=== PATIENT | female | born 1980 | race Caucasian/White ===

== ENCOUNTER 2017-07-16 13:15 | Emergency (ER) | payer MEDICAID ==
[2017-07-16 13:31] VITALS: BP 167/99
[2017-07-16] MEDS ORDERED: Acetaminophen/oxyCODONE 325-5 MG Tab PO ONE (13:39)
--- NOTE | 2017-07-16 13:43 | EDM.PDOC ---
ED HPI GENERAL MEDICAL PROBLEM - General Chief Complaint: ENT Problem Stated Complaint: TOOTH ACHE Time Seen by Provider: 07/16/17 13:44 Source of Information: Reports: Patient History Limitations: Reports: No Limitations - History of Present Illness INITIAL COMMENTS - FREE TEXT/NARRATIVE: Pt arrived with a painful rt lower molar and slight face swelling. She normally ses the [facility] clinic Duration: Hour(s):, Getting Worse - Related Data Allergies Allergy/AdvReac Type Severity Reaction Status Date / Time cephalexin monohydrate Allergy Intermediate Rash Verified 03/14/13 10:54 [From Keflex] Penicillins Allergy Intermediate Cannot Verified 03/14/13 10:54 Remember Sulfa (Sulfonamide Allergy Rash Verified 07/16/17 13:25 Antibiotics) Home Meds: Home Meds Venlafaxine HCl [Venlafaxine ER] 150 mg PO DAILY 01/29/13 [History] Dextroamphetamine/Amphetamine [Dextroamp-Amphet ER] 07/16/17 [History] traMADol HCl [Tramadol HCl] 07/16/17 [History] 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: Psychiatric History: Reports: Depression - Past Surgical History GI Surgical History: Reports: Appendectomy, Cholecystectomy Female Surgical History: Reports: Section Social & Family History - Tobacco Use Smoking Status *Q: Current Every Day Smoker Years of Tobacco use: 20 Packs/Tins Daily: 1 Used Tobacco, but Quit: No Second Hand Smoke Exposure: Yes - Alcohol Use Days Per Week of Alcohol Use: 0 - Recreational Drug Use Recreational Drug Use: No ED ROS ENT - Review of Systems Review Of Systems: See Below Constitutional: Reports: No Symptoms HEENT: Reports: Dental Pain, Ear Pain, Other (pain from the tooth extends to the ear. ) Respiratory: Reports: No Symptoms Cardiovascular: Reports: No Symptoms Endocrine: Reports: No Symptoms GI/Abdominal: Reports: No Symptoms : Reports: No Symptoms Musculoskeletal: Reports: No Symptoms Skin: Reports: No Symptoms ED EXAM, ENT - Physical Exam Exam: See Below Text/Narrative:: pt arrived with pain in the rt lower molar area. Exam Limited By: No Limitations General Appearance: Alert, Moderate Distress Ears: Normal TMs Nose: Normal Inspection Mouth/Throat: Dental Pain, Dental Tenderness, Other ( Pt does have some swelling along the jaw and around the rt back lower molar. ) Head: Atraumatic Course - Vital Signs Last Recorded V/S: Last Vital Signs Temp 36.1 C 07/16/17 13:29 Pulse 95 07/16/17 13:29 Resp 14 07/16/17 13:29 BP 167/99 H 07/16/17 13:29 Pulse Ox 94 L 07/16/17 13:29 - Orders/Labs/Meds Meds: Medications Discontinued Medications Generic Name Dose Route Start Last Admin Trade Name Freq PRN Reason Stop Dose Admin Oxycodone/Acetaminophen 1 tab 07/16/17 13:39 07/16/17 13:47 Percocet 325-5 Mg PO 07/16/17 13:40 1 tab ONETIME ONE Administration - Re-Assessments/Exams Free Text/Narrative Re-Assessment/Exam: 07/16/17 13:48 pt was given percocet 5/325 for pain 07/18/17 07:22 Departure - Departure Time of Disposition: 13:42 Disposition: Home, Self-Care 01 Clinical Impression: Infected tooth - Discharge Information Instructions: Dental Abscess, [id number] Referrals: PCP,None [Primary Care Provider] - Forms: ED Department Discharge Care Plan Goals: amoxicillin 500mg tid, norco 5/325 q6h prn for pain keep monday dental appt
== END 2017-07-16 13:50 | disposition home or self-care (01) ==
LOC: JP.ED 13:15
DX: K04.7 Periapical abscess without sinus (principal); F17.210 Nicotine dependence, cigarettes, uncomplicated; Z88.0 Allergy status to penicillin; Z88.2 Allergy status to sulfonamides; Z88.8 Allergy status to other drugs, medicaments and biological substances; Z79.899 Other long term (current) drug therapy
CPT/HCPCS: 99283; A9270

== ENCOUNTER 2017-07-17 13:53 | Emergency (ER) | payer MEDICAID ==
[2017-07-17 14:20] VITALS: BP 152/86
== END 2017-07-17 14:20 | disposition left against medical advice (07) ==
LOC: JP.ED 13:53
DX: Z53.21 Procedure and treatment not carried out due to patient leaving prior to being seen by health care provider (principal)

== ENCOUNTER 2017-09-03 14:07 | Emergency (ER) | payer MEDICAID ==
[2017-09-03 14:45] VITALS: BP 159/85
[2017-09-03] MEDS ORDERED: Ketorolac 30 MG/ML SDV IVPUSH ONE (14:59)
--- NOTE | 2017-09-03 15:02 | EDM.PDOC ---
ED HPI GENERAL MEDICAL PROBLEM - General Chief Complaint: ENT Problem Stated Complaint: RT TOP TOOTH PAIN Time Seen by Provider: 09/03/17 14:54 Source of Information: Reports: Patient History Limitations: Reports: No Limitations - History of Present Illness INITIAL COMMENTS - FREE TEXT/NARRATIVE: 36 yo female presents with dental pain. pain started 48 hours ago and has worsened with right sided eye and face swelling. afebrile. 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: Psychiatric History: Reports: Depression - Past Surgical History GI Surgical History: Reports: Appendectomy, Cholecystectomy Female Surgical History: Reports: Section Social & Family History - Tobacco Use Smoking Status *Q: Current Every Day Smoker Years of Tobacco use: 20 Packs/Tins Daily: 0.5 ED ROS ENT - Review of Systems Review Of Systems: See Below Constitutional: Denies: Fever, Chills HEENT: Reports: Dental Pain Respiratory: Denies: Shortness of Breath, Wheezing Cardiovascular: Denies: Chest Pain ED EXAM, ENT - Physical Exam Exam: See Below Exam Limited By: No Limitations General Appearance: Alert, WD/WN, No Apparent Distress Mouth/Throat: Dental Abcess, Dental Pain, Dental Tenderness (right upper rear molar) Head: Atraumatic, Normocephalic Neck: Supple, Non-Tender, Full Range of Motion, Lymphadenopathy (R) Respiratory/Chest: No Respiratory Distress Course - Vital Signs Last Recorded V/S: Last Vital Signs Temp 35.7 C 09/03/17 14:49 Pulse 59 L 09/03/17 14:49 Resp 16 09/03/17 14:49 BP 159/85 H 09/03/17 14:49 Pulse Ox 99 09/03/17 14:49 - Orders/Labs/Meds Meds: Medications Discontinued Medications Generic Name Dose Route Start Last Admin Trade Name Freq PRN Reason Stop Dose Admin Ketorolac Tromethamine 60 mg 09/03/17 14:59 09/03/17 15:05 Toradol IVPUSH 09/03/17 15:00 60 mg ONETIME ONE Administration Departure - Departure Time of Disposition: 15:02 Disposition: Home, Self-Care 01 Condition: Good Clinical Impression: Dental caries, Dental abscess - Discharge Information Referrals: Guille Barboza MD [Primary Care Provider] - Forms: ED Department Discharge Additional Instructions: present to dentist tomorrow clindamycin 300 mg three times daily for 7 days may find benefit form covering hole in tooth with dental wax found at [facility]
== END 2017-09-03 15:27 | disposition home or self-care (01) ==
LOC: JP.ED 14:07
DX: K04.7 Periapical abscess without sinus (principal); K02.9 Dental caries, unspecified; F17.210 Nicotine dependence, cigarettes, uncomplicated; Z88.1 Allergy status to other antibiotic agents; Z88.2 Allergy status to sulfonamides; Z88.0 Allergy status to penicillin; Z79.899 Other long term (current) drug therapy
CPT/HCPCS: 96374; 99283; J1885

== ENCOUNTER 2017-09-25 18:47 | Emergency (ER) | payer MEDICAID ==
[2017-09-25 20:51] VITALS: BP 161/90
[2017-09-25] MEDS ORDERED: Acetaminophen/oxyCODONE 325-5 MG Tab PO ONE (21:40)
[2017-09-25] MEDS ORDERED: Doxycycline 100 MG Cap PO ONE (21:40)
--- NOTE | 2017-09-25 21:43 | EDM.PDOC ---
ED HPI GENERAL MEDICAL PROBLEM - General Chief Complaint: Skin Complaint Stated Complaint: PAINFUL RED LUMP UNDER LEFT ARMPIT Time Seen by Provider: 09/25/17 21:33 left arm Pain Score (Numeric/FACES): 7 - Related Data Allergies Allergy/AdvReac Type Severity Reaction Status Date / Time cephalexin monohydrate Allergy Intermediate Rash Verified 09/25/17 20:45 [From Keflex] Penicillins Allergy Intermediate Cannot Verified 09/25/17 20:45 Remember Sulfa (Sulfonamide Allergy Rash Verified 09/25/17 20:45 Antibiotics) Home Meds: Home Meds Venlafaxine HCl [Venlafaxine ER] 150 mg PO DAILY 01/29/13 [History] Acetaminophen/oxyCODONE [Percocet 325-5 MG] 1 - 2 each PO Q4H PRN #6 tab [Rx] Dextroamphetamine/Amphetamine [Dextroamp-Amphet ER] 1 tab PO DAILY 09/25/17 [ History] Doxycycline Monohydrate 100 mg PO BID #14 capsule 09/25/17 [Rx] traMADol HCl [Tramadol HCl] 2 tab PO DAILY 09/25/17 [History] Past Medical History Gastrointestinal History: Reports: 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: Psychiatric History: Reports: Depression - Past Surgical History GI Surgical History: Reports: Appendectomy, Cholecystectomy Female Surgical History: Reports: Section Social & Family History - Tobacco Use Smoking Status *Q: Current Every Day Smoker Years of Tobacco use: 20 Packs/Tins Daily: 1 - Caffeine Use Caffeine Use: Reports: Coffee, Energy Drinks, Soda - Alcohol Use Days Per Week of Alcohol Use: 3 Number of Drinks Per Day: 3 Total Drinks Per Week: 9 - Recreational Drug Use Recreational Drug Use: No ED ROS GENERAL - Review of Systems Review Of Systems: See Below Constitutional: Reports: Malaise, Decreased Appetite. Denies: Fever, Chills HEENT: Reports: No Symptoms Respiratory: Reports: No Symptoms Cardiovascular: Reports: No Symptoms GI/Abdominal: Reports: No Symptoms Skin: Reports: Lesions (Tender red swollen area posterior aspect left upper arm) ED EXAM, SKIN/RASH Exam: See Below Exam Limited By: No Limitations General Appearance: Alert, Moderate Distress, Other (Elevated blood pressure but vital signs normal) Head: Atraumatic, Normocephalic Neck: Normal Inspection, Supple Respiratory/Chest: No Respiratory Distress, No Accessory Muscle Use Cardiovascular: Normal Peripheral Pulses, Regular Rate, Rhythm Extremities: Other (2 cm tender indurated swollen area with overlying eschar posterior aspect left upper arm) Neurological: Alert, Oriented Skin: Warm, Erythema (Tender swollen area as described above) Associated features: Tenderness (Restlessness) Lymphatic: No Adenopathy Course - Vital Signs Last Recorded V/S: Last Vital Signs Temp 36.2 C 09/25/17 20:49 Pulse 90 09/25/17 20:49 Resp 15 09/25/17 20:49 BP 161/90 H 09/25/17 20:49 Pulse Ox 99 09/25/17 20:49 - Orders/Labs/Meds Meds: Medications Discontinued Medications Generic Name Dose Route Start Last Admin Trade Name Freq PRN Reason Stop Dose Admin Doxycycline Hyclate 100 mg 09/25/17 21:40 09/25/17 21:48 Vibramycin PO 09/25/17 21:41 100 mg ONETIME ONE Administration Oxycodone/Acetaminophen 2 tab 09/25/17 21:40 09/25/17 21:48 Percocet 325-5 Mg PO 09/25/17 21:41 2 tab ONETIME ONE Administration - Re-Assessments/Exams Free Text/Narrative Re-Assessment/Exam: 09/25/17 21:42 36-year-old female with painful tender red swelling left upper arm Examination shows a small absce, considerable induration and some cellulitis around the area Unlikely to benefit from incision and drainage at this time Doxycycline 100 mg by mouth Perc 5/325, 2 tablets by mouthocetss 09/26/17 04:14 Departure - Departure Time of Disposition: 21:42 Disposition: Home, Self-Care 01 Condition: Good Clinical Impression: Abscess - Discharge Information Prescriptions: Acetaminophen/oxyCODONE [Percocet 325-5 MG] 1 - 2 each PO Q4H PRN #6 tab PRN Reason: Moderate to severe pain Doxycycline Monohydrate 100 mg PO BID #14 capsule Instructions: Skin Abscess Referrals: PCP,None [Primary Care Provider] - Forms: ED Department Discharge Additional Instructions: Soaking the area in hot water 2-3 times daily 15-20 minutes can help speed the healing See your physician if not improved in a week Get checked sooner if you have high fever or vomiting
== END 2017-09-25 21:51 | disposition home or self-care (01) ==
LOC: JP.ED 18:47
DX: L02.414 Cutaneous abscess of left upper limb (principal); F17.210 Nicotine dependence, cigarettes, uncomplicated; F32.9 Major depressive disorder, single episode, unspecified; K21.9 Gastro-esophageal reflux disease without esophagitis; Z79.899 Other long term (current) drug therapy; Z88.1 Allergy status to other antibiotic agents; Z88.0 Allergy status to penicillin; Z88.2 Allergy status to sulfonamides
CPT/HCPCS: 99283; A9270

== ENCOUNTER 2018-05-02 18:16 | Emergency (ER) | payer MEDICAID ==
--- NOTE | 2018-05-02 19:19 | EDM.PDOCBH ---
ED HPI GENERAL MEDICAL PROBLEM - General Chief Complaint: Behavioral/Psych Stated Complaint: SUICIDAL IDEATION Time Seen by Provider: 05/02/18 18:40 Source of Information: Reports: Patient, Family History Limitations: Reports: No Limitations - History of Present Illness INITIAL COMMENTS - FREE TEXT/NARRATIVE: 37-year-old female with severe depression, attempted suicide with overdose 1 week ago but survived. She has lost parental rights to her children, and recently got out of senior care 2 weeks ago. She has never been hospitalized for psychiatric reasons. She has been refusing help for years, and is finally broken down and asked her mom to help her and she is willing to get help. She is nonviolent. She admits to alcohol abuse and occasional methamphetamine use. I originally suggested detox, however she said she is currently sober and hasn' t used in days and has no need for detox, she needs to be somewhere where she is safe. Her mother is hopeful because this is the first time she is actually asked for help. Onset: Unknown/Unsure Associated Symptoms: Reports: No Other Symptoms - Related Data Allergies Allergy/AdvReac Type Severity Reaction Status Date / Time cephalexin monohydrate Allergy Intermediate Rash Verified 05/02/18 18:35 [From Keflex] Penicillins Allergy Intermediate Cannot Verified 05/02/18 18:35 Remember Sulfa (Sulfonamide Allergy Rash Verified 05/02/18 18:35 Antibiotics) Home Meds: Home Meds Venlafaxine HCl [Venlafaxine ER] 150 mg PO DAILY 01/29/13 [History] Acetaminophen/oxyCODONE [Percocet 325-5 MG] 1 - 2 each PO Q4H PRN #6 tab [Rx] Dextroamphetamine/Amphetamine [Dextroamp-Amphet ER] 1 tab PO DAILY 09/25/17 [ History] traMADol HCl [Tramadol HCl] 2 tab PO DAILY 09/25/17 [History] Past Medical History HEENT History: Reports: None 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: Musculoskeletal History: Reports: Fibromyalgia Neurological History: Reports: Headaches, Chronic Psychiatric History: Reports: Addiction, Anxiety, Depression Endocrine/Metabolic History: Reports: Obesity/BMI 30+ Dermatologic History: Reports: Other (See Below) Other Dermatologic History: sores on skin - Infectious Disease History Infectious Disease History: Reports: Chicken Pox - Past Surgical History HEENT Surgical History: Reports: Adenoidectomy, Tonsillectomy GI Surgical History: Reports: Appendectomy, Cholecystectomy Female Surgical History: Reports: Section Social & Family History - Tobacco Use Smoking Status *Q: Current Every Day Smoker Years of Tobacco use: 20 Packs/Tins Daily: 1 - Caffeine Use Caffeine Use: Reports: Coffee, Energy Drinks, Soda - Alcohol Use Days Per Week of Alcohol Use: 2 Number of Drinks Per Day: 17 Total Drinks Per Week: 34 Date of Last Drink: 04/28/18 Time of Last Drink: 05:30 - Recreational Drug Use Recreational Drug Use: Yes Recreational Drug Type: Reports: Marijuana/Hashish, Methamphetamine Recreational Drug Use Frequency: Daily ED ROS GENERAL - Review of Systems Review Of Systems: See Below Constitutional: Denies: Fever Respiratory: Denies: Cough, Hemoptysis Cardiovascular: Denies: Chest Pain GI/Abdominal: Denies: Abdominal Pain, Nausea, Vomiting : Reports: No Symptoms Skin: Reports: No Symptoms Psychiatric: Reports: Depression, Suicidal Ideation ED EXAM, BEHAVIORAL HEALTH - Physical Exam Exam: See Below Exam Limited By: No Limitations General Appearance: Alert, No Apparent Distress Eye Exam: Bilateral Eye: Normal Inspection Respiratory/Chest: No Respiratory Distress, Lungs Clear Cardiovascular: Regular Rate, Rhythm GI/Abdominal: Non-Tender Extremities: Normal Inspection (No evidence of self-inflicted injury) Neurological: Alert, Oriented x 3 Psychiatric: Depressed Mood, Tearful Skin Exam: Warm, Dry COURSE, BEHAVIORAL HEALTH COMP - Course Vital Signs: Last Vital Signs Temp 96.6 F 05/02/18 18:36 Pulse 84 05/02/18 21:52 Resp 18 05/02/18 21:52 BP 175/94 H 05/02/18 21:52 Pulse Ox 97 05/02/18 21:52 Orders, Labs, Meds: Active Orders 24 hr Category Date Time Status CULTURE URINE [RM] Stat Lab 05/02/18 19:43 Received Laboratory Tests 05/02/18 05/02/18 05/02/18 Range/Units 18:58 18:58 18:58 WBC 9.0 (4.5-11.0) K/uL RBC 4.84 (3.30-5.50) M/uL Hgb 12.2 (12.0-15.0) g/dL Hct 39.5 (36.0-48.0) % MCV 82 (80-98) fL MCH 25 L (27-31) pg MCHC 31 L (32-36) % Plt Count 300 (150-400) K/uL Neut % (Auto) 64 (36-66) % Lymph % (Auto) 32 (24-44) % [place] % (Auto) 5 (2-6) % Eos % (Auto) 0 L (2-4) % Baso % (Auto) 0 (0-1) % Sodium 141 (140-148) mmol/L Potassium 3.6 (3.6-5.2) mmol/L Chloride 105 (100-108) mmol/L Carbon Dioxide 25 (21-32) mmol/L Anion Gap 10.9 (5.0-14.0) mmol/L BUN 18 (7-18) mg/dL Creatinine 0.8 (0.6-1.0) mg/dL Est Cr Clr Drug Dosing 91.88 mL/min Estimated GFR (MDRD) > 60 (>60) Glucose 105 (74-106) mg/dL Calcium 8.6 (8.5-10.1) mg/dL Total Bilirubin 0.1 L (0.2-1.0) mg/dL AST 11 L (15-37) U/L ALT 25 (12-78) U/L Alkaline Phosphatase 65 (46-116) U/L Total Protein 7.0 (6.4-8.2) g/dL Albumin 3.4 (3.4-5.0) g/dL Globulin 3.6 H (2.3-3.5) g/dL Albumin/Globulin Ratio 0.9 L (1.2-2.2) Urine Color Urine Appearance Urine pH (4.5-8.0) Ur Specific [place] (1.008-1.030) Urine Protein (NEGATIVE) mg/dL Urine Glucose (UA) (NEGATIVE) mg/dL Urine Ketones (NEGATIVE) mg/dL Urine Occult Blood (NEGATIVE) Urine Nitrite (NEGATIVE) Urine Bilirubin (NEGATIVE) Urine Urobilinogen (NORMAL) mg/dL Ur Leukocyte Esterase (NEGATIVE) Urine RBC (0-5) Urine WBC (0-5) Ur Epithelial Cells Amorphous Sediment Urine Bacteria Urine Mucus Salicylates 4.8 (2.0-20.0) mg/dL Urine Opiates Screen (NEGATIVE) Ur Oxycodone Screen (NEGATIVE) Urine Methadone Screen (NEGATIVE) Ur Propoxyphene Screen (NEGATIVE) Acetaminophen < 2.0 L (10.0-30.0) ug/mL Ur Barbiturates Screen (NEGATIVE) Ur Tricyclics Screen (NEGATIVE) Ur Phencyclidine Scrn (NEGATIVE) Ur Amphetamine Screen (NEGATIVE) U Methamphetamines Scrn (NEGATIVE) Urine MDMA Screen (NEGATIVE) U Benzodiazepines Scrn (NEGATIVE) U Cocaine Metab Screen (NEGATIVE) U Marijuana (THC) Screen (NEGATIVE) Ethyl Alcohol mg/dL 05/02/18 05/02/18 05/02/18 Range/Units 18:58 19:06 20:10 WBC (4.5-11.0) K/uL RBC (3.30-5.50) M/uL Hgb (12.0-15.0) g/dL Hct (36.0-48.0) % MCV (80-98) fL MCH (27-31) pg MCHC (32-36) % Plt Count (150-400) K/uL Neut % (Auto) (36-66) % Lymph % (Auto) (24-44) % [place] % (Auto) (2-6) % Eos % (Auto) (2-4) % Baso % (Auto) (0-1) % Sodium (140-148) mmol/L Potassium (3.6-5.2) mmol/L Chloride (100-108) mmol/L Carbon Dioxide (21-32) mmol/L Anion Gap (5.0-14.0) mmol/L BUN (7-18) mg/dL Creatinine (0.6-1.0) mg/dL Est Cr Clr Drug Dosing mL/min Estimated GFR (MDRD) (>60) Glucose (74-106) mg/dL Calcium (8.5-10.1) mg/dL Total Bilirubin (0.2-1.0) mg/dL AST (15-37) U/L ALT (12-78) U/L Alkaline Phosphatase (46-116) U/L Total Protein (6.4-8.2) g/dL Albumin (3.4-5.0) g/dL Globulin (2.3-3.5) g/dL Albumin/Globulin Ratio (1.2-2.2) Urine Color Red Urine Appearance Turbid Urine pH 5.0 (4.5-8.0) Ur Specific [place] 1.020 (1.008-1.030) Urine Protein 30 H (NEGATIVE) mg/dL Urine Glucose (UA) Normal (NEGATIVE) mg/dL Urine Ketones Negative (NEGATIVE) mg/dL Urine Occult Blood Large (NEGATIVE) Urine Nitrite Negative (NEGATIVE) Urine Bilirubin Small (NEGATIVE) Urine Urobilinogen 1 (NORMAL) mg/dL Ur Leukocyte Esterase Moderate (NEGATIVE) Urine RBC Packed H (0-5) Urine WBC Semi-packed H (0-5) Ur Epithelial Cells Few Amorphous Sediment Few Urine Bacteria Moderate Urine Mucus Few Salicylates (2.0-20.0) mg/dL Urine Opiates Screen Negative (NEGATIVE) Ur Oxycodone Screen Negative (NEGATIVE) Urine Methadone Screen Negative (NEGATIVE) Ur Propoxyphene Screen Negative (NEGATIVE) Acetaminophen (10.0-30.0) ug/mL Ur Barbiturates Screen Negative (NEGATIVE) Ur Tricyclics Screen Negative (NEGATIVE) Ur Phencyclidine Scrn Negative (NEGATIVE) Ur Amphetamine Screen Negative (NEGATIVE) U Methamphetamines Scrn Negative (NEGATIVE) Urine MDMA Screen Negative (NEGATIVE) U Benzodiazepines Scrn Negative (NEGATIVE) U Cocaine Metab Screen Negative (NEGATIVE) U Marijuana (THC) Screen Negative (NEGATIVE) Ethyl Alcohol 3 mg/dL Medications Discontinued Medications Generic Name Dose Route Start Last Admin Trade Name Kaelyn PRN Reason Stop Dose Admin Acetaminophen 1,000 mg 05/02/18 19:56 05/02/18 20:01 Tylenol Extra Strength PO 05/02/18 19:57 1,000 mg ONETIME ONE Administration Nitrofurantoin Macrocrystals 100 mg 05/02/18 19:40 05/02/18 19:54 Macrobid PO 05/02/18 19:41 100 mg ONETIME ONE Administration Re-Assessment/Re-Exam: UA, urine drug screen, salicylates, acetaminophen, EtOH, CBC and CMP were obtained. CBC was normal, UA did show evidence of cystitis with WBC, RBC, and bacteria present. Culture was initiated and the patient will be started on Macrobid twice a day. CMP returned normal, there was a small amount of salicylates and no acetaminophen, also a trace of alcohol at 0.003. Urine drug screen is negative. Process will be started to find inpatient psychiatric care. Patient was accepted to [facility] for inpatient psychiatric care. She will be transported willingly by her family, no 72 hour hold is necessary. Departure - Departure Time of Disposition: 22:05 Disposition: DC/Tfer to Other 70 Condition: Good Clinical Impression: Depressive disorder, Suicidal ideations - Discharge Information Instructions: Major Depressive Disorder, Adult Referrals: Guille Barboza MD [Primary Care Provider] - Forms: ED Department Discharge Care Plan Goals: Take Macrobid twice a day for 7 days, and travel directly to [facility] unit to be admitted for inpatient evaluation and treatment. - My Orders Last 24 Hours: My Active Orders 05/02/18 19:43 CULTURE URINE [RM] Stat - Assessment/Plan Last 24 Hours: My Active Orders 05/02/18 19:43 CULTURE URINE [RM] Stat
[2018-05-02] MEDS ORDERED: Nitrofurantoin Monohydrate/Macrocrystalline 100 MG Cap PO ONE (19:40)
[2018-05-02] MEDS ORDERED: Acetaminophen 500 MG Tab PO ONE (19:56)
[2018-05-02 20:07] LABS: ACETAMINOPHEN < 2.0 ug/mL (10.0-30.0)
[2018-05-02 21:52] VITALS: BP 175/94
== END 2018-05-02 22:05 | disposition other institution (70) ==
LOC: JP.ED 18:16
DX: F32.9 Major depressive disorder, single episode, unspecified (principal); K21.9 Gastro-esophageal reflux disease without esophagitis; F17.210 Nicotine dependence, cigarettes, uncomplicated; Z88.2 Allergy status to sulfonamides; Z88.0 Allergy status to penicillin
CPT/HCPCS: 36415; 80053; 80305; 81001; 85025; 87086; 99283; 99285; A9270; G0480